=== PATIENT | male | born 1985 | race Caucasian/White ===

== ENCOUNTER 2020-11-25 20:34 | Emergency (ER) | payer OTHER ==
[~2020-11-25] VITALS: Ht 170.2 cm; Wt 79.4 kg
[~2020-11-25 20:34] MED LIST: NOHOMEMEDICATIONS; VISTARIL 25 MG25 M1 PO
[2020-11-25] MEDS ORDERED: CEPHALEXIN500 MG PO (21:08)
[2020-11-25 21:15] VITALS: BP 143/73
== END 2020-11-25 21:15 | disposition home or self-care (01) ==
LOC: M.ERS 20:34
DX: S91.101A Unspecified open wound of right great toe without damage to nail, initial encounter (principal); F10.10 Alcohol abuse, uncomplicated; M19.90 Unspecified osteoarthritis, unspecified site; F17.210 Nicotine dependence, cigarettes, uncomplicated; Z88.1 Allergy status to other antibiotic agents; Z88.0 Allergy status to penicillin; Z59.0 Homelessness; W22.8XXA Striking against or struck by other objects, initial encounter; Y93.89 Activity, other specified; Y92.89 Other specified places as the place of occurrence of the external cause; Y99.8 Other external cause status

== ENCOUNTER 2021-01-04 10:22 | Emergency (ER) | payer OTHER ==
[~2021-01-04] VITALS: Ht 170.2 cm; Wt 73.1 kg
[~2021-01-04 10:22] MED LIST changes: +CEPHALEXIN500 MG PO
[2021-01-04 10:48] LABS: HEMATOCRIT 44.6 % (42.0-52.0); MCH 31.5 pg (26.0-34.0); MCHC 33.6 g/dL (28.0-37.0); MCV 93.5 fL (80.0-100.0); NUCLEATED RBCS 0 /100WBC; PLATELET COUNT* 293 thou/uL (150-400); RBC 4.77 mil/uL (4.50-6.00); RDW-CV 13.6 % (10.5-14.5); WBC 11.3 thou/uL (4.0-11.0)
[2021-01-04 11:27] LABS: AMP/METHAMP Negative (Negative); BARBITURATES Negative (Negative); BENZODIAZEPINES Negative (Negative); COCAINE Negative (Negative); METHADONE Negative (Negative); OPIATES Negative (Negative); PCP Negative (Negative); THC Negative (Negative)
[2021-01-04 11:32] LABS: ALCOHOL 336 mg/dL (<10); SALICYLATE < 2.8 mg/dL (2.8-20.0)
[2021-01-04 11:34] LABS: ACETAMINOPHEN < 2 ug/mL (10-30)
[2021-01-04 11:35] LABS: CALCIUM 8.2 mg/dL (8.5-10.1); CREATININE 0.9 mg/dL (0.6-1.3); POTASSIUM 4.3 mmol/L (3.5-5.1)
[2021-01-04 11:40] LABS: ABSOLUTE EOSINOPHILS 0.2 thou/uL (0.0-0.7); ABSOLUTE LYMPHOCYTES 7.2 thou/uL (0.8-5.3); ABSOLUTE MONOCYTES 0.8 thou/uL (0.0-1.2); ABSOLUTE NEUTROPHILS 3.1 thou/uL (1.6-8.1); ATYPICAL LYMPHS 4 %; PLATELET ESTIMATE ADEQUATE
[2021-01-04 12:01] LABS: ALBUMIN 4.1 g/dL (3.4-5.0); CK-MB MASS 3.4 ng/mL (<0.5-3.6); TOTAL BILIRUBIN 0.6 mg/dL (<0.1-1.0); TOTAL PROTEIN 7.7 g/dL (6.4-8.2)
[2021-01-04 13:50] VITALS: BP 122/72
--- NOTE | 2021-01-06 11:18 | EKG ---
[place] [address] ELECTROCARDIOGRAM REPORT Name: JOSE NICHOLS [id number] Admission: 01/04/21 Attend Phys: Discharge: 01/04/21 Date of : 83 Date of Service: 01/04/21 1020 Report #: [id number] THIS REPORT FOR: //name// [facility] ED Test Date: 2021-01-04 Test Time: 10:20:53 Pat Name: JOES NICHOLS Department: Room: Gender: Janitor Supervisor: : 1985 Requested By: Zaid Griffin Order Number: [id number] MD: Lukas [place] Measurements Intervals [place] Rate: 82 P: 72 CO: 145 QRS: 73 QRSD: 91 T: 67 QT: 366 QTc: 428 Interpretive Statements Sinus rhythm No previous ECG available for comparison Electronically Signed On 01-06-2021 11:18:11 CDT by Lukas [place] [email or web address] <ELECTRONICALLY SIGNED> By: Lukas [place] MD, [facility] 01/06/21 1118 1020 1020 Lukas [place] MD, FACC /EPI
== END 2021-01-04 13:51 ==
LOC: M.ERS 10:22
PROVIDERS: Emergency Medicine
DX: R07.89 Other chest pain (principal); F10.920 Alcohol use, unspecified with intoxication, uncomplicated; R50.9 Fever, unspecified; M19.90 Unspecified osteoarthritis, unspecified site; F17.210 Nicotine dependence, cigarettes, uncomplicated; Z96.22 Myringotomy tube(s) status; Z88.1 Allergy status to other antibiotic agents; Z88.0 Allergy status to penicillin; Y90.8 Blood alcohol level of 240 mg/100 ml or more

== ENCOUNTER 2021-02-05 02:58 | Emergency (ER) | payer OTHER ==
[~2021-02-05] VITALS: Ht 172.7 cm; Wt 76.0 kg
[2021-02-05 10:25] VITALS: BP 122/72
== END 2021-02-05 10:26 | disposition home or self-care (01) ==
LOC: M.ERS 02:58
DX: F10.920 Alcohol use, unspecified with intoxication, uncomplicated (principal); R45.6 Violent behavior; M19.90 Unspecified osteoarthritis, unspecified site; F17.210 Nicotine dependence, cigarettes, uncomplicated; Z96.22 Myringotomy tube(s) status; Z88.1 Allergy status to other antibiotic agents; Z88.0 Allergy status to penicillin; Y90.8 Blood alcohol level of 240 mg/100 ml or more